=== PATIENT | female | born 1950 | race Caucasian/White ===

== ENCOUNTER 2018-02-24 19:50 | Inpatient (IN) | payer BC, OTHER ==
[~2018-02-24] VITALS: Ht 165.1 cm; Wt 63.5 kg
[2018-02-24] MEDS ORDERED: ONDANSETRON ODT 4 MG TAB.RAPDIS SL PRN (21:45)
[2018-02-24] MEDS ORDERED: ONDANSETRON 4 MG/2 ML VIAL IM PRN (21:45)
[2018-02-24] MEDS ORDERED: ACETAMINOPHEN 325 MG TABLET PO PRN (21:45)
[2018-02-24] MEDS ORDERED: LORAZEPAM 1 MG TABLET PO PRN (21:45)
[2018-02-24] MEDS ORDERED: DICYCLOMINE HCL 20 MG TABLET PO PRN (21:45)
[2018-02-24] MEDS ORDERED: LOPERAMIDE HCL 2 MG CAPSULE PO PRN ×2 (21:45)
[2018-02-24] MEDS ORDERED: LORAZEPAM 2 MG/1 ML VIAL IM PRN (21:45)
[2018-02-24] MEDS ORDERED: NICOTINE POLACRILEX 4 MG GUM-PK OF TEN BC PRN (21:45)
[2018-02-24] MEDS ORDERED: MAGNESIUM HYDROXIDE 30 ML LIQUID UDC PO PRN (21:45)
[2018-02-24] MEDS ORDERED: MIRALAX 17 GM POWD.PACK PO PRN (21:45)
[2018-02-24] MEDS ORDERED: diphenhydrAMINE 50 MG CAPSULE PO PRN (21:45)
[2018-02-24] MEDS ORDERED: CLONIDINE HCL 0.1 MG TABLET PO PRN (21:45)
[2018-02-24] MEDS ORDERED: NICOTINE 14 MG/24HR PATCH TD PRN (21:45)
[2018-02-24] MEDS ORDERED: THIAMINE HCL 200 MG/2 ML VIAL IM ONE (21:45)
[2018-02-24] MEDS ORDERED: MAG HYDROX/AL HYDROX/SIMETH 30 ML LIQUID UDC PO PRN (21:45)
[2018-02-24 22:37] LABS: *URINE HCG, QUAL NEGATIVE (NEGATIVE)
[2018-02-24 22:50] LABS: *AMPHETAMINE, URINE NEGATIVE (NEGATIVE); *BARBITURATE, URINE NEGATIVE (NEGATIVE); *CANNABINOID, URINE NEGATIVE (NEGATIVE); *COCCAINE, URINE NEGATIVE (NEGATIVE); *OPIATE, URINE NEGATIVE (NEGATIVE); *PHENCYCLIDINE SCREEN,URINE NEGATIVE (NEGATIVE)
[2018-02-24 23:24] LABS: BASOPHILS % (AUTO) 0.6 % (0.0-2.0); EOSINOPHILS # (AUTO) 0.1 K/uL (0.0-0.7); EOSINOPHILS % (AUTO) 1.1 % (0.0-7.0); HEMATOCRIT 42.3 % (31.2-41.9); HEMOGLOBIN 14.3 g/dL (10.9-14.3); LYMPHOCYTES # (AUTO) 2.9 K/uL (20.0-40.0); LYMPHOCYTES % (AUTO) 44.5 % (20.5-51.5); MEAN CORPUSCULAR HEMOGLOBIN 31.8 uug (24.7-32.8); MEAN CORPUSCULAR HGB CONC 34 g/dL (32.3-35.6); MEAN CORPUSCULAR VOLUME 93.7 fL (75.5-95.3); MONOCYTES # (AUTO) 0.6 K/uL (2.0-10.0); NEUTROPHILS % (AUTO) 44.8 % (38.5-71.5); PLATELET COUNT (AUTO) 373 K/uL (179-408); RED BLOOD CELL COUNT(AUTO) 4.51 MIL/uL (3.63-4.92); WHITE BLOOD COUNT (AUTO) 6.6 K/uL (3.8-11.8)
[2018-02-24 23:38] LABS: BILIRUBIN,TOTAL 0.3 mg/dL (0.2-1.0); CREATININE 0.6 mg/dL (0.6-1.3); MAGNESIUM 2.1 mg/dL (1.8-2.4); POTASSIUM 3.7 mmol/L (3.5-5.1); TOTAL PROTEIN, SERUM 7.5 g/dL (6.4-8.2)
[2018-02-25] VITALS: BP_SYST 111; BP_SYST 84; BP_DIAS 42; BP_DIAS 62
[2018-02-25] MEDS: LORAZEPAM 1 MG TABLET PO PRN ×3 (01:55→15:04)
[2018-02-25 04:00] VITALS: BP 110/52
[2018-02-25 08:00] VITALS: BP 113/71
[2018-02-25] MEDS: MULTIVITAMINS,THERAPEUTIC TABLET PO SCH (08:35)
[2018-02-25] MEDS: FOLIC ACID 1 MG TABLET PO SCH (08:35)
[2018-02-25] MEDS: THIAMINE HCL 100 MG TABLET PO SCH (08:36)
[2018-02-25] MEDS ORDERED: TUBERCULIN,PURIF.PROT.DERIV. 5 TU/0.1 ML TEST ID ONE (09:00)
[2018-02-25 12:00] VITALS: BP 114/66
[2018-02-25] MEDS ORDERED: CLON0.1T14 PO (13:16)
[2018-02-25] MEDS ORDERED: DIPH50CA37 PO (13:16)
[2018-02-25] MEDS ORDERED: IBUP-1953 PO (13:16)
[2018-02-25 16:00] VITALS: BP 109/49
[2018-02-25 20:00] VITALS: BP 109/58
[2018-02-25] MEDS ORDERED: TRAZODONE 100 MG TABLET PO ONE (22:00)
[2018-02-26] VITALS: BP 111/62
[2018-02-26 04:00] VITALS: BP 107/64
[2018-02-26 08:00] VITALS: BP 96/53
[2018-02-26] MEDS: FOLIC ACID 1 MG TABLET PO SCH (09:24)
[2018-02-26] MEDS: THIAMINE HCL 100 MG TABLET PO SCH (09:24)
[2018-02-26] MEDS: MULTIVITAMINS,THERAPEUTIC TABLET PO SCH (09:24)
[2018-02-26] MEDS ORDERED: TRAZODONE 100 MG TABLET PO PRN (10:00)
[2018-02-26] MEDS ORDERED: HYDROXYZINE PAMOATE 25 MG CAPSULE PO PRN (11:45)
[2018-02-26] MEDS ORDERED: CLONIDINE HCL 0.1 MG TABLET PO PRN (11:45)
[2018-02-26 12:00] VITALS: BP 131/83
[2018-02-26 12:06] LABS: HEPATITIS B SURFACE AG Negative (Negative)
[2018-02-26] MEDS ORDERED: GABAPENTIN 100 MG CAPSULE PO ONE (13:00)
[2018-02-26 16:00] VITALS: BP 133/64
[2018-02-26 20:00] VITALS: BP 144/89
[2018-02-26] MEDS: GABAPENTIN 100 MG CAPSULE PO SCH (21:00)
[2018-02-26] MEDS: IBUPROFEN 400 MG TABLET PO PRN (21:48)
[2018-02-27 08:00] VITALS: BP 132/69
[2018-02-27] MEDS: MULTIVITAMINS,THERAPEUTIC TABLET PO SCH (08:13)
[2018-02-27] MEDS: FOLIC ACID 1 MG TABLET PO SCH (08:13)
[2018-02-27] MEDS: THIAMINE HCL 100 MG TABLET PO SCH (08:13)
[2018-02-27] MEDS: GABAPENTIN 100 MG CAPSULE PO SCH ×2 (08:14→20:56)
[2018-02-27 12:00] VITALS: BP 145/73
[2018-02-27] MEDS ORDERED: QUETIAPINE FUMARATE 25 MG TABLET PO PRN (14:30)
[2018-02-27] MEDS ORDERED: QUETIAPINE FUMARATE 100 MG TABLET PO PRN (14:30)
[2018-02-27 16:00] VITALS: BP 142/62
[2018-02-27 20:00] VITALS: BP 165/83
[2018-02-28] VITALS: BP 146/66
[2018-02-28] MEDS: IBUPROFEN 400 MG TABLET PO PRN (02:09)
[2018-02-28 04:00] VITALS: BP 132/78
[2018-02-28 08:00] VITALS: BP 123/71
[2018-02-28] MEDS: MULTIVITAMINS,THERAPEUTIC TABLET PO SCH (08:17)
[2018-02-28] MEDS: FOLIC ACID 1 MG TABLET PO SCH (08:17)
[2018-02-28] MEDS: THIAMINE HCL 100 MG TABLET PO SCH (08:17)
[2018-02-28] MEDS: GABAPENTIN 100 MG CAPSULE PO SCH (08:18)
[2018-02-28 12:00] VITALS: BP 139/73
== END 2018-02-28 12:35 | disposition home or self-care (01) | DRG 895 ==
LOC: SRC 21:08
PROVIDERS: ADMIT Internal Medicine; ATTEND Internal Medicine
PROC: HZ2ZZZZ Detoxification Services for Substance Abuse Treatment (ICD-10-PCS; principal; 2018-02-24)
PROC: HZ41ZZZ Group Counseling for Substance Abuse Treatment, Behavioral (ICD-10-PCS; 2018-02-26)
PROC: HZ31ZZZ Individual Counseling for Substance Abuse Treatment, Behavioral (ICD-10-PCS; 2018-02-27)
DX: F10.230 Alcohol dependence with withdrawal, uncomplicated (principal); F33.2 Major depressive disorder, recurrent severe without psychotic features; F17.210 Nicotine dependence, cigarettes, uncomplicated; F43.10 Post-traumatic stress disorder, unspecified; G89.29 Other chronic pain; Z59.1 Inadequate housing; Y90.9 Presence of alcohol in blood, level not specified; Z91.5 Personal history of self-harm; Z86.59 Personal history of other mental and behavioral disorders; K27.7 Chronic peptic ulcer, site unspecified, without hemorrhage or perforation; Z85.820 Personal history of malignant melanoma of skin; Z81.1 Family history of alcohol abuse and dependence; Z81.8 Family history of other mental and behavioral disorders; M54.5 Low back pain; R26.81 Unsteadiness on feet; Z59.0 Homelessness; G47.00 Insomnia, unspecified
CPT/HCPCS: 36415; 70030-TC; 80307; 83735; 84703; 85025; 86580; 86592; 86705; 86803; 87340; 87806; 93005; A4663; G0480; Q0162